=== PATIENT | male | born 1955 | race Caucasian/White ===

== ENCOUNTER 2023-03-21 08:15 | Emergency (ER) | payer MEDICARE ==
[~2023-03-21] VITALS: Ht 177.8 cm; Wt 84.0 kg
[2023-03-21] MEDS ORDERED: PAXLOVID 10 X 11 TAB PO ×2 (09:23→10:18)
[2023-03-21 09:27] VITALS: BP 134/99
== END 2023-03-21 09:33 | disposition home or self-care (01) ==
LOC: ED 08:15
DX: U07.1 COVID-19 (principal); R52 Pain, unspecified; R50.9 Fever, unspecified; J02.9 Acute pharyngitis, unspecified